=== PATIENT | female | born 1975 | race Caucasian/White ===

== ENCOUNTER 2021-07-27 10:40 | Emergency (ER) | payer SELFPAY ==
[~2021-07-27] VITALS: Ht 162.6 cm; Wt 72.6 kg
[2021-07-27 10:48] VITALS: BP 123/71
[2021-07-27] MEDS ORDERED: CEPHALEXIN MONOHYDRATE 500 MG CAPSULE PO ONE ×2 (11:16→11:30)
[2021-07-27] MEDS ORDERED: TDAP [DIPH/PERTUSSIS/TET] 0.5 ML VIAL IM ONE ×2 (11:17→11:30)
[2021-07-27] MEDS ORDERED: CEPH500T PO (11:58)
--- NOTE | 2021-07-27 12:15 | NUR ---
Patient discharged to home in stable condition. Written and verbal after care instructions given. Patient verbalizes understanding of instruction.
== END 2021-07-27 12:31 | disposition home or self-care (01) ==
LOC: ER 10:45
DX: S61.213A Laceration without foreign body of left middle finger without damage to nail, initial encounter (principal); M54.50 Low back pain, unspecified; W26.0XXA Contact with knife, initial encounter; Y93.89 Activity, other specified; Y92.89 Other specified places as the place of occurrence of the external cause; Y99.8 Other external cause status
CPT/HCPCS: 72100-TC; 90715

== ENCOUNTER 2023-02-02 13:55 | Emergency (ER) | payer SELFPAY ==
[~2023-02-02] VITALS: Ht 162.6 cm; Wt 70.3 kg
[~2023-02-02 13:55] MED LIST: CEPH500T PO
[2023-02-02 14:09] VITALS: BP 109/77; TEMP 97.3; O2SAT 98
[2023-02-02 14:58] LABS: APPEARANCE,URINE SLIGHTLY CLOUDY (CLEAR); BILIRUBIN,URINE NEGATIVE (NEGATIVE); BLOOD, URINE TRACE-INTA Ery/uL (NEGATIVE); COLOR,URINE YELLOW (YELLOW); KETONES,URINE NEGATIVE (NEGATIVE); LEUKOCYTE ESTERASE ,URINE 3+ (NEGATIVE); NITRITE, URINE NEGATIVE (NEGATIVE); PROTEIN,URINE NEGATIVE (NEGATIVE); UGLUCOSE NEGATIVE (NEGATIVE)
[2023-02-02 15:43] LABS: ADD URINE CULTURE YES; BACTERIA,URINE 3+ /HPF (None Seen); WBC,URINE 51-80 /HPF (0-3)
[2023-02-02] MEDS ORDERED: CEPH500C2 PO (18:18)
[2023-02-02] MEDS ORDERED: KETOROLAC TROMETHAMINE 15 MG/ML VIAL ONE (18:24)
== END 2023-02-02 18:28 | disposition home or self-care (01) ==
LOC: ER 14:12
DX: N39.0 Urinary tract infection, site not specified (principal); Z79.899 Other long term (current) drug therapy; Z60.2 Problems related to living alone
CPT/HCPCS: 81001; 87086-TC; J1885

== ENCOUNTER 2023-08-14 18:31 | Emergency (ER) | payer SELFPAY ==
[~2023-08-14] VITALS: Ht 162.6 cm; Wt 72.6 kg
[~2023-08-14 18:31] MED LIST changes: +CEPH500C2 PO
[2023-08-14 18:46] VITALS: BP 135/76; TEMP 98.4; O2SAT 99
== END 2023-08-14 20:51 | disposition left against medical advice (07) ==
LOC: ER 18:43
DX: R53.1 Weakness (principal); Z53.21 Procedure and treatment not carried out due to patient leaving prior to being seen by health care provider